=== PATIENT | female | born 1965 | race Caucasian/White ===

== ENCOUNTER 2021-06-16 15:27 | Day surgery (SDC) | payer OTHER ==
[2021-06-16] MEDS ORDERED: Depo-Medrol 40 MG/ML IM ONE (15:28)
[2021-06-16] MEDS ORDERED: Sodium Chloride 0.9(Preservative Free) 10 ML IJ ONE (15:28)
[2021-06-16] MEDS ORDERED: Xylocaine 1% Vial 30 ML PF IJ ONE (15:28)
--- NOTE | 2021-06-16 20:38 | XRAY ---
Indication: Lumbar DELONTE. Intraoperative fluoroscopy provided for 20 seconds. 3 digital spot images submitted for interpretation demonstrates posterior needle tip projecting over just posterior to L4-L5 interspace. Small amount of contrast injected for needle tip placement. Correlate with intraoperative findings/report.
--- NOTE | 2021-06-17 15:09 | XRAY ---
20 seconds of fluoroscopy was used in surgery for a lumbar DELONTE.
== END 2021-06-16 17:25 | disposition home or self-care (01) ==
LOC: SDC-PAIN 15:27
PROVIDERS: ATTEND Psychiatry & Neurology Pain Medicine
DX: M54.16 Radiculopathy, lumbar region (principal); Z79.899 Other long term (current) drug therapy
CPT/HCPCS: 62323; 72100; 77003; J1030; J2001; Q9966

== ENCOUNTER 2021-09-15 10:58 | Day surgery (SDC) | payer OTHER ==
[2021-09-15] MEDS ORDERED: LIDOCAINE HCL 2% 100 MG/5 ML IJ ONE (10:59)
[2021-09-15] MEDS ORDERED: Depo-Medrol 40 MG/ML IM ONE (10:59)
[2021-09-15] MEDS ORDERED: DIPRIVAN 200 MG/20 ML IV ONE (12:18)
[2021-09-15] MEDS ORDERED: Lactated Ringers 1,000 ML IV ONE (12:35)
--- NOTE | 2021-09-15 13:42 | XRAY ---
Indication: Bilateral L4-S1 MBB. Intraoperative fluoroscopy provided for 10 seconds. Single digital spot image submitted for interpretation demonstrates posterior needle tips projecting over the expected left and right L4-S1 nerve roots. Correlate with intraoperative findings/report.
--- NOTE | 2021-09-15 16:46 | XRAY ---
10 seconds of fluoroscopy was used in surgery for a bilateral L4-S1 MBB.
== END 2021-09-15 12:51 | disposition home or self-care (01) ==
LOC: SDC-PAIN 10:58
PROVIDERS: ATTEND Psychiatry & Neurology Pain Medicine
DX: M47.816 Spondylosis without myelopathy or radiculopathy, lumbar region (principal); Z79.899 Other long term (current) drug therapy
CPT/HCPCS: 64493; 64494; 72020; 77002; J1030; J2704

== ENCOUNTER 2021-10-06 14:33 | Day surgery (SDC) | payer OTHER ==
[2021-10-06] MEDS ORDERED: BUPIVACAINE 0.5% VIAL IJ ONE (14:34)
[2021-10-06] MEDS ORDERED: Xylocaine 1% Vial 30 ML PF IJ ONE (14:34)
[2021-10-06] MEDS ORDERED: Depo-Medrol 40 MG/ML IM ONE (14:34)
[2021-10-06] MEDS ORDERED: Lactated Ringers 1,000 ML IV ONE (16:24)
--- NOTE | 2021-10-06 18:56 | XRAY ---
Indication: Left L4-S1 RFA. Intraoperative fluoroscopy provided for 27 seconds. 4 digital spot image submitted for interpretation demonstrates posterior needle tips projecting over the expected left L4-S1 nerve roots. Correlate with intraoperative findings/report.
--- NOTE | 2021-10-06 19:00 | XRAY ---
27 seconds of fluoroscopy was used in surgery for a left L3-L5 RFA.
== END 2021-10-06 18:25 | disposition home or self-care (01) ==
LOC: SDC-PAIN 14:33
PROVIDERS: ATTEND Psychiatry & Neurology Pain Medicine
DX: M47.816 Spondylosis without myelopathy or radiculopathy, lumbar region (principal); Z79.899 Other long term (current) drug therapy
CPT/HCPCS: 64635; 64636; 72100; 77002; J1030; J2001

== ENCOUNTER 2021-10-13 14:11 | Day surgery (SDC) | payer OTHER ==
[2021-10-13] MEDS ORDERED: Xylocaine 1% Vial 30 ML PF IJ ONE (14:12)
[2021-10-13] MEDS ORDERED: Depo-Medrol 40 MG/ML IM ONE (14:12)
[2021-10-13] MEDS ORDERED: BUPIVACAINE 0.5% VIAL IJ ONE (14:12)
[2021-10-13] MEDS ORDERED: Lactated Ringers 1,000 ML IV ONE (15:48)
[2021-10-13] MEDS ORDERED: DIPRIVAN 200 MG/20 ML IV ONE (15:51)
--- NOTE | 2021-10-13 16:43 | XRAY ---
25 seconds of fluoroscopy was used in surgery for a right L3-L5 RFA.
--- NOTE | 2021-10-13 16:43 | XRAY ---
Indication: Right L4-S1 RFA. Intraoperative fluoroscopy provided for 25 seconds. 3 digital spot image submitted for interpretation demonstrates posterior needle tips projecting over the expected right L4-S1 nerve roots. Correlate with intraoperative findings/report.
== END 2021-10-13 16:23 | disposition home or self-care (01) ==
LOC: SDC-PAIN 14:11
PROVIDERS: ATTEND Psychiatry & Neurology Pain Medicine
DX: M47.816 Spondylosis without myelopathy or radiculopathy, lumbar region (principal); Z79.899 Other long term (current) drug therapy
CPT/HCPCS: 64635; 64636; 72100; 77002; J1030; J2001; J2704

== ENCOUNTER 2021-11-17 13:29 | Day surgery (SDC) | payer OTHER ==
[2021-11-17] MEDS ORDERED: BUPIVACAINE 0.5% VIAL IJ ONE (13:30)
[2021-11-17] MEDS ORDERED: Depo-Medrol 40 MG/ML IM ONE (13:30)
[2021-11-17] MEDS ORDERED: DIPRIVAN 200 MG/20 ML IV ONE (15:39)
[2021-11-17] MEDS ORDERED: Lactated Ringers 1,000 ML IV ONE (15:52)
--- NOTE | 2021-11-17 16:22 | XRAY ---
Indication: Bilateral SI joint injection. Intraoperative fluoroscopy provided for 27 seconds. 5 digital spot image submitted for interpretation demonstrates posterior needle tip projecting over the inferior left and right SI joints. Correlate with intraoperative findings/report.
--- NOTE | 2021-11-17 16:26 | XRAY ---
27 seconds of fluoroscopy was used in surgery for bilateral SI joint injections.
== END 2021-11-17 16:10 | disposition home or self-care (01) ==
LOC: SDC-PAIN 13:29
PROVIDERS: ATTEND Psychiatry & Neurology Pain Medicine
DX: M46.1 Sacroiliitis, not elsewhere classified (principal); Z79.899 Other long term (current) drug therapy
CPT/HCPCS: 27096; 72202; 77002; G0260; J1030; J2704

== ENCOUNTER 2022-02-23 16:16 | Day surgery (SDC) | payer OTHER ==
[2022-02-23] MEDS ORDERED: Sodium Chloride 0.9(Preservative Free) 10 ML IJ ONE (16:17)
[2022-02-23] MEDS ORDERED: Decadron 4 MG INJ IV ONE (16:17)
[2022-02-23] MEDS ORDERED: XYLOCAINE-MPF 1% 5ML SDV IJ ONE (16:17)
[2022-02-23] MEDS ORDERED: Lactated Ringers 1,000 ML IV ONE (18:48)
--- NOTE | 2022-02-24 18:33 | XRAY ---
32 seconds fluoroscopy time in surgery for cervical DELONTE.
--- NOTE | 2022-02-25 21:55 | XRAY ---
Indication: Midline Cervical DELONTE. Intraoperative fluoroscopy provided for 32 seconds. 2 digital spot images submitted for interpretation demonstrates midline posterior needle tip projecting [id number]. Small amounts of contrast injected for needle tip placement. Correlate with intraoperative findings/report.
== END 2022-02-23 18:15 | disposition home or self-care (01) ==
LOC: SDC-PAIN 16:16
PROVIDERS: ATTEND Psychiatry & Neurology Pain Medicine
DX: M54.12 Radiculopathy, cervical region (principal); Z79.899 Other long term (current) drug therapy
CPT/HCPCS: 62321; 72040; 77003; J1100; Q9966

== ENCOUNTER 2023-07-26 07:27 | Day surgery (SDC) | payer OTHER ==
[2023-07-26] MEDS ORDERED: BUPIVACAINE 0.5% VIAL IJ ONE (07:28)
[2023-07-26] MEDS ORDERED: Depo-Medrol 40 MG/ML IM ONE (07:28)
[2023-07-26] MEDS ORDERED: DIPRIVAN 200 MG/20 ML IV ONE (09:12)
[2023-07-26] MEDS ORDERED: Lactated Ringers 1,000 ML IV ONE (13:42)
--- NOTE | 2023-07-26 20:45 | XRAY ---
Indication: Bilateral SI joint injection. Intraoperative fluoroscopy provided for 23 seconds. 4 digital spot image submitted for interpretation demonstrates posterior needle tip projecting over the expected left and right SI joint. Correlate with intraoperative findings/report.
--- NOTE | 2023-07-26 21:41 | XRAY ---
23 seconds of fluoroscopy was used in surgery for a bilateral sacroiliac joint injection.
== END 2023-07-26 09:40 | disposition home or self-care (01) ==
LOC: SDC-PAIN 07:27
PROVIDERS: ATTEND Psychiatry & Neurology Pain Medicine
DX: M46.1 Sacroiliitis, not elsewhere classified (principal); R73.03 Prediabetes
CPT/HCPCS: 27096; 72202; 77002; 82947; J1030; J2704; G0260

== ENCOUNTER 2023-10-11 09:39 | Day surgery (SDC) | payer OTHER ==
[2023-10-11] MEDS ORDERED: BUPIVACAINE 0.5% VIAL IJ ONE (09:40)
[2023-10-11] MEDS ORDERED: Depo-Medrol 40 MG/ML IM ONE (09:40)
[2023-10-11] MEDS ORDERED: XYLOCAINE-MPF 1% 5ML SDV IJ ONE (09:40)
[2023-10-11] MEDS ORDERED: DIPRIVAN 200 MG/20 ML IV ONE (11:21)
--- NOTE | 2023-10-11 12:07 | XRAY ---
Indication: Right L3-L5 RFA. Intraoperative fluoroscopy was provided for 18 seconds. 3 digital spot image submitted for interpretation demonstrates posterior needle tips projecting over the expected right L3-L5 nerve roots. Correlate with intraoperative findings/report.
--- NOTE | 2023-10-11 13:21 | XRAY ---
18 seconds of fluoroscopy was used in surgery for a right L3-L5 RFA.
[2023-10-11] MEDS ORDERED: Lactated Ringers 1,000 ML IV ONE (13:55)
== END 2023-10-11 11:50 | disposition home or self-care (01) ==
LOC: SDC-PAIN 09:39
PROVIDERS: ATTEND Psychiatry & Neurology Pain Medicine
DX: M47.816 Spondylosis without myelopathy or radiculopathy, lumbar region (principal); R73.03 Prediabetes
CPT/HCPCS: 64635; 64636; 72100; 77002; 82947; J1030; J2704

== ENCOUNTER 2023-10-18 09:40 | Day surgery (SDC) | payer OTHER ==
[2023-10-18] MEDS ORDERED: XYLOCAINE-MPF 1% 5ML SDV IJ ONE (09:41)
[2023-10-18] MEDS ORDERED: Depo-Medrol 40 MG/ML IM ONE (09:41)
[2023-10-18] MEDS ORDERED: BUPIVACAINE 0.5% VIAL IJ ONE (09:41)
[2023-10-18] MEDS ORDERED: Lactated Ringers 1,000 ML IV ONE (10:55)
[2023-10-18] MEDS ORDERED: DIPRIVAN 200 MG/20 ML IV ONE (11:31)
--- NOTE | 2023-10-18 14:43 | XRAY ---
Indication: Left L3-L5 RFA. Intraoperative fluoroscopy provided for 25 seconds. 3 digital spot images submitted for interpretation demonstrates posterior needle tips projecting over the expected left L3-L5 nerve roots. Correlate with intraoperative findings/report.
--- NOTE | 2023-10-18 14:47 | XRAY ---
25 seconds of fluoroscopy was used in surgery for a left L3-L5 RFA.
== END 2023-10-18 12:10 | disposition home or self-care (01) ==
LOC: SDC-PAIN 09:40
PROVIDERS: ATTEND Psychiatry & Neurology Pain Medicine
DX: M47.816 Spondylosis without myelopathy or radiculopathy, lumbar region (principal); R73.03 Prediabetes
CPT/HCPCS: 64635; 64636; 72100; 77002; 82947; J1030; J2704

== ENCOUNTER 2023-11-15 15:43 | Day surgery (SDC) | payer OTHER ==
[2023-11-15] MEDS ORDERED: LIDOCAINE HCL 1% 50 MG/5 ML VL PF IJ ONE (15:44)
[2023-11-15] MEDS ORDERED: Decadron 4 MG INJ IV ONE (15:44)
[2023-11-15] MEDS ORDERED: Sodium Chloride 0.9(Preservative Free) 10 ML IJ ONE (15:44)
[2023-11-15] MEDS ORDERED: Lactated Ringers 1,000 ML IV ONE (16:56)
--- NOTE | 2023-11-15 18:35 | XRAY ---
Indication: Cervical DELONTE. Intraoperative fluoroscopy provided for 31 seconds. 2 digital spot image submitted for interpretation demonstrates posterior needle tip projecting posterior to cervical thoracic junction. Small amount of contrast injected for needle tip placement. Correlate with intraoperative findings/report.
--- NOTE | 2023-11-16 12:46 | XRAY ---
31 seconds of fluoroscopy was used in surgery for a cervical DELONTE.
== END 2023-11-15 17:48 | disposition home or self-care (01) ==
LOC: SDC-PAIN 15:43
PROVIDERS: ATTEND Psychiatry & Neurology Pain Medicine
DX: M54.12 Radiculopathy, cervical region (principal)
CPT/HCPCS: 62321; 72040; 77003; J1100; J2001; Q9966